=== PATIENT | male | born 1985 | race Hispanic/Latino ===

== ENCOUNTER 2025-05-07 19:58 | Emergency (ER) | payer OTHER ==
[~2025-05-07] VITALS: Ht 157.5 cm; Wt 87.1 kg
[2025-05-07 20:00] VITALS: TEMP 97.7
--- NOTE | 2025-05-07 20:34 | EKG ---
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
[2025-05-07 20:56] LABS: IMMATURE GRANULOCYTE ABSOLUTE 0.03 K/uL (0-1); NUCLEATED RED BLOOD CELLS 0.0 % (0.0-0.19); PLATELET COUNT (AUTO) 210 K/uL (130-400); RED BLOOD CELL COUNT(AUTO) 4.89 MIL/uL (4.50-6.20); RED CELL DISTRIBUTION WIDTH 12.3 % (11.0-15.5); WHITE BLOOD COUNT (AUTO) 8.0 K/uL (4.8-10.8)
[2025-05-07 21:15] LABS: CREATINE KINASE, TOTAL 195.0 U/L (21-232)
[2025-05-07 21:20] LABS: CREATININE 0.9 mg/dL (0.5-1.3); GLOMERULAR FILTR. RATE CALC 109.0 mL/min (>90); GLUCOSE,RANDOM 97.0 mg/dL (70-105); SODIUM SERUM 138.0 mmol/L (136-145); UREA NITROGEN, BLOOD 11.0 mg/dL (7-18)
--- NOTE | 2025-05-07 21:26 | HMCIMG ---
EXAM: CR Chest, 1 View. CLINICAL HISTORY: syncope COMPARISON: None provided. FINDINGS: LUNGS: There is no mass, infiltrate, or acute pulmonary abnormality. PLEURAL SPACES: No pleural effusion or pneumothorax. MEDIASTINUM: Cardiac size and mediastinal contours within normal limits. BONES: No acute osseous abnormality. IMPRESSION: No acute cardiopulmonary pathology is evident. /[place]
--- NOTE | 2025-05-07 21:51 | ERN ---
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 He hit his back of the head. Prior to the event he stated that he has had severe anxiety and also felt very nauseated but did not vomit. He had a similar episode in the past. No history of any headache blurred vision diplopia motor weakness or seizure activity. No bladder or bowel incontinence. No chest pain pressure PND orthopnea. No history of any congenital valvular problem. He is accompanied by snf officers Temperature 97.7 pulse 65 respirations 16 blood pressure 113/72 with a pulse oximetry of 96% on room air He has a history of hypertension but does not remember the medication that he takes. Patient gets it in the snf facility Allergies: Coded Allergies: No Known Drug Allergies (Unverified Allergy, Unknown, 05/07/25) Past Medical History Past Medical History: Hypertension Surgical History: None Family History: DM (Patient's mother), Negative Social History: Negative RN Note Reviewed/Agreed w/PFSH: Yes Review of System Dictation Constitutional: Negative for fever,chills, and weight loss Eyes: Negative for injury, pain,redness, and discharge ENT: Negative for injury,pain or swelling Cardiovascular: Negative for chest pain, palpitations, and edema positive for symptoms described in the HPI. When he fell back he hit the back of the head. Respiratory: Negative for shortness of breath, cough, and wheezing, Abdomen/GI: Negative for abdominal pain, nausea, vomiting, diarrhea, and constipation Back: Negative for injury and pain : Negative for injury, bleeding and discharge MS/Extremity: Negative for injury and deformity Skin: Negative for rash, and discoloration Neuro: Negative for headache, weakness, numbness, tingling, and seizure Psych: Negative for suicide ideation, homicidal ideation, and hallucinations Initial Vital Sign VS Vital Signs Date Time Temp Pulse Resp B/P (MAP) Pulse Ox O2 Delivery O2 Flow Rate FiO2 05/07/25 20:00 97.7 65 16 96 Room Air 0 05/07/25 21:07 21 05/07/25 21:42 113/72 Physical Exam Dictation General: awake, alert, NAD Head/Face: Normocephalic, left occipital area a small bump. No abrasion laceration or any bleeding noted Eyes: PERRL, EOMI, vision at baseline ENT: oral cavity clear, TMs clear, no signs of infection Neck: Trachea midline, supple, no nuchal rigidity Cardiovascular: RRR, normal S1/S2, No MRGs, no JVD Respiratory: CTAB, no respiratory distress, No rales or wheezes Abdomen: Soft, non-tender, non-distended, normal bowel sounds, no guarding or rebound. Skin: Warm, dry, normal turgor, no rash MS/Extremity: Pulses equal, no cyanosis, neurovascular intact, FROM Neuro: COAx4, GCS 15, strength 5/5, CN 2-12 intact, normal cerebellar exam, normal gait, Psych: Normal behavior, mood, and affect normal Extremities-trace edema without any palpable cords, Homans sign is negative Results (Laboratory/Radiology) Laboratory/Radiology Laboratory Tests Test 05/07/25 20:36 White Blood Count 8.0 K/uL (4.8-10.8) Red Blood Count 4.89 MIL/uL (4.50-6.20) Hemoglobin 14.8 g/dL (14.0-18.0) Hematocrit 41.6 % (42-54) L Mean Corpuscular Volume 85.1 fL (79-99) Mean Corpuscular Hemoglobin 30.3 pg (27.0-33.0) Mean Corpuscular Hemoglobin Concent 35.6 g/dL (32.0-36.0) Red Cell Distribution Width 12.3 % (11.0-15.5) Platelet Count 210 K/uL (130-400) Mean Platelet Volume 10.8 fL (7.5-10.5) H Immature Granulocyte % (Auto) 0.4 % (0-1) Neutrophils (%) (Auto) 50.7 % (40.0-77.0) Lymphocytes (%) (Auto) 39.9 % (21.0-51.0) Monocytes (%) (Auto) 7.0 % (3.0-13.0) Eosinophils (%) (Auto) 1.6 % (0.0-8.0) Basophils (%) (Auto) 0.4 % (0.0-5.0) Neutrophils # (Auto) 4.1 K/uL (1.8-7.7) Lymphocytes # (Auto) 3.2 K/uL (1.0-4.8) Monocytes # (Auto) 0.6 K/uL (0.1-1.0) Eosinophils # (Auto) 0.13 K/uL (0.00-0.70) Basophils # (Auto) 0.03 K/uL (0.00-0.20) Absolute Immature Granulocyte (auto 0.03 K/uL (0-1) Nucleated Red Blood Cells 0.0 % (0.0-0.19) D-Dimer Quantitative (PE/DVT) 176 ng/mL (0-500) Sodium Level 138 mmol/L (136-145) Potassium Level 3.8 mmol/L (3.5-5.1) Chloride Level 101 mmol/L (101-111) Carbon Dioxide Level 27 mmol/L (21-32) Blood Urea Nitrogen 11 mg/dL (7-18) Creatinine 0.9 mg/dL (0.5-1.3) Glomerular Filtration Rate Calc 109 mL/min (>90) Random Glucose 97 mg/dL (70-105) Total Calcium 8.7 mg/dL (8.5-10.1) Total Creatine Kinase 195 U/L (21-232) Troponin I High Sensitivity 4.6 ng/L (4-75) Labs Reviewed?: Yes CT Scan Comment: REASON: post scalp hematoma ORDERING PHYSICIAN: BOB JENSEN MD PROCEDURE: HEAD WO - CT HEAD/BRAIN W/O CONTRAST EXAM: CT Head Without IV contrast. CLINICAL HISTORY: Post scalp hematoma. TECHNIQUE: Axial computed tomography images of the head/brain without intravenous contrast. COMPARISON: None provided. FINDINGS: BRAIN: No evidence of acute hemorrhage. No mass lesion. No CT evidence for acute territorial infarct. No midline shift or extra-axial collections. VENTRICLES: No hydrocephalus. ORBITS: The orbits are unremarkable. SINUSES AND MASTOIDS: The paranasal sinuses and mastoid air cells are clear. BONES: No fracture. SOFT TISSUES: There is a small hematoma in the left occipitoparietal scalp. IMPRESSION: No intracranial hemorrhage, mass effect, or calvarial fracture. Small hematoma in the left occipitoparietal scalp. /[place] DICTATED BY: FELY ABBOTT Jr., MD DATE: 05/08/25143 ELECTRONICALLY SIGNED BY: FELY ABBOTT Jr., MD DATE: 05/08/25143 ED Course ED Course Orders Procedure Category Date Status Time Vital Signs Per CPOE 05/07/25 Transmitted Routine 20:20 Oxygen By Nc/Pulse Ox CPOE 05/07/25 Transmitted 20:20 Iv Insertion CPOE 05/07/25 Transmitted 20:20 Cbc With Differential LAB 05/07/25 Complete 20:20 Cardiac Panel LAB 05/07/25 Complete 20:20 12 Lead Ekg Tracing- EKG 05/07/25 Complete Technical 20:20 Basic Metabolic Panel LAB 05/07/25 Complete 20:32 D-Dimer LAB 05/07/25 Complete 20:32 Chest 1vw RAD 05/07/25 Resulted 20:32 Chest 1vw RAD 05/07/25 Resulted 21:45 Ct Head/Brain W/O CT 05/07/25 Resulted Contrast 22:38 Vital Signs Date Time Temp Pulse Resp B/P (MAP) Pulse Ox O2 Delivery O2 Flow Rate FiO2 05/08/25 01:26 59 16 109/72 95 Room Air* 0 05/08/25 00:26 54 16 117/75 97 Room Air* 0 05/07/25 23:50 53 18 109/67 98 Room Air* 0 05/07/25 22:45 57 16 106/66 96 Room Air* 0 05/07/25 21:42 56 16 113/72 97 Room Air* 0 05/07/25 21:07 61 18 98 Room Air* 0 05/07/25 20:00 97.7 65 16 96 Room Air 0 We will perform diagnostic labs, advanced imaging and administer medications according to the patient's complaint. Once the results are available, will review and personally interpreted the labs to rule out any acute life- threatening emergency the trach require immediate intervention and treatment. I will then re-evaluate the patient after treatment and diagnostic exams have return to determine whether the patient requires any further testing, can safely be discharged home or need further admission to hospital for additional treatment and evaluation. 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 He hit his back of the head. Prior to the event he stated that he has had severe anxiety and also felt very nauseated but did not vomit. He had a similar episode in the past. No history of any headache blurred vision diplopia motor weakness or seizure activity. No bladder or bowel incontinence. No chest pain pressure PND orthopnea. No history of any congenital valvular problem. He is accompanied by snf officers Temperature 97.7 pulse 65 respirations 16 blood pressure 113/72 with a pulse oximetry of 96% on room air He has a history of hypertension but does not remember the medication that he takes. Patient gets it in the snf facility Labs reviewed CBC is with a normal limits, BNP 7 is with a normal limits. Troponins are negative. Chest x-ray-left lung appeared hyperlucent may just be technical issue-I repeated the chest x-ray expiratory film which was with a normal limits. CT scan of the head was unremarkable for any intracranial event but showed a small occipital soft tissue hematoma I had a long discussion with the patient and explained to him all the workup so far and it is certainly likely that his presentation could be consistent with a vasovagal episode. Answered all his questions to his satisfaction. [employer] officers were at bedside Rationale: Tests considered and ordered secondary to shared decision making include: Previous outside records reviewed: Old ER visits. Risk of complication and/or morbidity or mortality of patient management: None Medications-Per medication reconciliation Need for hospitalization: Patient does not meet criteria for hospitalization. Need for emergency major/minor surgery: No There are no social concerns with this patient. Prescription drug management Prescriptions will include symptomatic care Patient's prior external medical records from other ER visits were reviewed by me as indicated. Prior testing and results from previous visits were reviewed. Prior tests were taken into account with medical decision making and resource utilization, independent historian/historians were used to obtain complete medical history. I independently interpreted the test that were performed, results were reviewed by me and considered findings on radiology if ordered. Medical management and examination interpretation discussions were had by me with other qualified healthcare professionals as indicated for the patient's care. Problem List Problem List: (1) Vasovagal near-syncope (2) Anxiety (3) Hematoma of occipital region of scalp DX & DISP Disposition: Discharge Departure Impression: Primary Impression: Vasovagal near-syncope Additional Impressions: Anxiety, Hematoma of occipital region of scalp Condition: Stable Additional Instructions: Patient and the caregiver have been informed of all the diagnostic tests and the imaging conducted during the today's visit to the emergency room and has verbalized understanding of the results I have personally reviewed and interpreted all diagnostic exams performed here in the ER today as well as the vital signs documented by the nursing staff. The patient is now being discharged to law enforcement and should follow up with the primary care physician or the specialist as directed by the ER staff. Referrals: SELF,REFERRAL (PCP) BOB JENSEN MD May 07, 2025 21:51
--- NOTE | 2025-05-07 22:56 | HMCIMG ---
EXAM: CR Chest, 1 View. CLINICAL HISTORY: expiratory film - evaluate Pneumothorax or [place] on the left COMPARISON: None provided. FINDINGS: LUNGS: The lungs show no infiltrate or other acute finding. PLEURAL SPACES: No evidence of pleural effusion or pneumothorax. MEDIASTINUM: The cardiomediastinal silhouette is within normal limits. BONES: No acute osseous abnormality. IMPRESSION: No acute cardiopulmonary pathology is evident. /[place]
--- NOTE | 2025-05-08 00:45 | HMCIMG ---
EXAM: CT Head Without IV contrast. CLINICAL HISTORY: Post scalp hematoma. TECHNIQUE: Axial computed tomography images of the head/brain without intravenous contrast. COMPARISON: None provided. FINDINGS: BRAIN: No evidence of acute hemorrhage. No mass lesion. No CT evidence for acute territorial infarct. No midline shift or extra-axial collections. VENTRICLES: No hydrocephalus. ORBITS: The orbits are unremarkable. SINUSES AND MASTOIDS: The paranasal sinuses and mastoid air cells are clear. BONES: No fracture. SOFT TISSUES: There is a small hematoma in the left occipitoparietal scalp. IMPRESSION: No intracranial hemorrhage, mass effect, or calvarial fracture. Small hematoma in the left occipitoparietal scalp. /[place]
[2025-05-08 01:26] VITALS: BP 109/72; PULSE 59; RESP 16; O2SAT 95
== END 2025-05-08 02:03 ==
LOC: EDH 19:58
DX: S00.03XA Contusion of scalp, initial encounter (principal); F41.9 Anxiety disorder, unspecified; R55 Syncope and collapse; I10 Essential (primary) hypertension; W22.8XXA Striking against or struck by other objects, initial encounter; Y93.89 Activity, other specified; Y92.89 Other specified places as the place of occurrence of the external cause; Y99.8 Other external cause status
CPT/HCPCS: 36415; 70450; 71045; 80048; 82550; 84484; 85025; 85378; 93005; 99285